=== PATIENT | male | born 1970 | race Caucasian/White ===

== ENCOUNTER 2021-11-10 12:46 | Outpatient (CLI) | payer BC, MEDICAID, SELFPAY ==
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
== END 2021-11-10 12:47 | disposition home or self-care (01) ==
LOC: RAD 12:53
PROVIDERS: PCP Family Medicine; Visit Provider Family Medicine
DX: M25.561 Pain in right knee (principal); M54.2 Cervicalgia; M54.6 Pain in thoracic spine; M54.50 Low back pain, unspecified; V89.2XXA Person injured in unspecified motor-vehicle accident, traffic, initial encounter
CPT/HCPCS: 72040; 72072; 72100; 73562